=== PATIENT | male | born 1970 | race Caucasian/White ===

== ENCOUNTER → 2023-10-03 06:26 | Outpatient (REF) | payer BC, SELFPAY ==
[2023-10-03 07:44] LABS: Blood Urea Nitrogen 25 mg/dl (9-20); Calcium 9.2 mg/dl (8.4-10.2); Carbon Dioxide 28 mmol/L (22-30); Chloride 106 mmol/L (98-107); Glucose 163 mg/dl (70-99); Sodium 141 mmol/L (135-145); eGFR > 60.00
== END ==
LOC: REG 06:26
PROVIDERS: ATTENDING PHYSICIAN Specialist
DX: Z01.818 Encounter for other preprocedural examination (principal)
CPT/HCPCS: 36415; 80048

== ENCOUNTER → 2023-10-11 13:23 | Outpatient (REF) | payer BC, SELFPAY | LOC: DHCBC MAIN 13:23 | PROVIDERS: ATTENDING PHYSICIAN Internal Medicine | DX: I25.10 Atherosclerotic heart disease of native coronary artery without angina pectoris (principal); I21.4 Non-ST elevation (NSTEMI) myocardial infarction; R60.9 Edema, unspecified | CPT/HCPCS: 93306 ==